=== PATIENT | female | born 1980 | race Caucasian/White ===

== ENCOUNTER 2020-11-23 07:08 | Emergency (ER) | payer SELFPAY ==
[~2020-11-23] VITALS: Ht 165.1 cm; Wt 68.0 kg
[~2020-11-23 07:08] MED LIST: CEPH500
[2020-11-23] MEDS ORDERED: AMOCLA500 (07:28)
== END 2020-11-23 09:00 | disposition home or self-care (01) ==
LOC: ER 07:08
DX: R51.9 Headache, unspecified (principal); R04.0 Epistaxis; Z88.2 Allergy status to sulfonamides
CPT/HCPCS: 70486; 99283-25

== ENCOUNTER → 2021-02-28 | Outpatient (CLI) | payer SELFPAY ==
[~2021-02-28] MED LIST changes: +AMOCLA500
== END | disposition home or self-care (01) ==
LOC: LAB SHORT 07:51 → PLD 07:51
DX: D18.09 Hemangioma of other sites (principal)
CPT/HCPCS: 88305